=== PATIENT | female | born 1960 | race Two or more races ===

== ENCOUNTER 2022-03-20 15:51 | Emergency (ER) | payer OTHER ==
[~2022-03-20] VITALS: Ht 162.6 cm; Wt 59.0 kg
[2022-03-20] MEDS ORDERED: CHILDREN'S ASPI81 MG (16:38)
[2022-03-20] MEDS ORDERED: HYDROCHLOROTH12.5 MG (16:38)
[2022-03-20] MEDS ORDERED: COZAAR50 MG (16:38)
== END 2022-03-20 19:27 | disposition home or self-care (01) ==
LOC: ER 15:51
DX: I83.029 Varicose veins of left lower extremity with ulcer of unspecified site (principal); I10 Essential (primary) hypertension; Z91.013 Allergy to seafood